=== PATIENT | male | born 1970 | race Caucasian/White ===

== ENCOUNTER 2019-03-16 16:27 | Inpatient (IN) | payer OTHER ==
[2019-03-17 02:20] VITALS: BMI 22.5
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
[2019-03-17] MEDS ORDERED: MAGNESIUM HYDROX 2400MG/30ML ORAL SUSPENSION 30 ML CUP PO PRN (02:52)
[2019-03-17] MEDS ORDERED: ACETAMINOPHEN 325 MG TABLET (FP) PO PRN ×2 (02:52)
[2019-03-17] MEDS ORDERED: MELATONIN 5 MG TABLETS PO PRN (02:52)
[2019-03-17] MEDS ORDERED: BISMUTH SUBSALICYLATE 524 MG/30 ML UD PO PRN (02:52)
[2019-03-17] MEDS ORDERED: MAG HYDROX/AL HYDROX/SIMETH 30 ML UNIT-DOSE CUP PO PRN (02:52)
[2019-03-17] MEDS ORDERED: IBUPROFEN 400 MG TABLET (FP) PO PRN (02:52)
[2019-03-17] MEDS ORDERED: hydrOXYzine PAMOATE 25 MG CAPSULE (FP) PO PRN (02:52)
[2019-03-17] MEDS ORDERED: METHOCARBAMOL 500 MG TABLET PO PRN (02:52)
[2019-03-17] MEDS ORDERED: chlordiazePOXIDE HCL 25 MG CAPSULE PO PRN (02:52)
[2019-03-17] MEDS ORDERED: MENTHOL/PHENOL 1 EACH UD MM PRN (02:52)
[2019-03-17] MEDS ORDERED: MAGNESIUM CITRATE 300 ML BOTTLE PO PRN (02:52)
[2019-03-17] MEDS ORDERED: NICOTINE POLACRILEX 2 MG GUM BUC PRN (02:52)
[2019-03-17] MEDS: chlordiazePOXIDE HCL 25 MG CAPSULE PO SCH ×2 (07:17→11:27)
[2019-03-17] MEDS ORDERED: METHADONE HCL 10 MG TABLET PO SCH (08:00)
[2019-03-17] MEDS ORDERED: METHADONE 120 MG, METHADONE 30 MG PO SCH ×2 (08:15)
[2019-03-17] MEDS ORDERED: METHADONE HCL 10 MG TABLET ONE (09:33)
[2019-03-17] MEDS ORDERED: METHADONE HCL 40 MG DISPERSABLE TABLET ONE (09:34)
[2019-03-17] MEDS ORDERED: METHADONE HCL 10 MG TABLET PO ONE (09:40)
[2019-03-17 09:42] VITALS: BP 100/62; PULSE 54; TEMP 98.4
[2019-03-17] MEDS ORDERED: METHADONE 120 MG, METHADONE 30 MG PO ONE (09:50)
[2019-03-17] MEDS ORDERED: NICOTINE 21 MG/24 HOURS TOPICAL PATCH TD SCH (10:00)
[2019-03-17] MEDS ORDERED: PRENATAL VITAMINS W/ FOLIC ACID TABLET (FP) PO SCH (10:00)
--- NOTE | 2019-03-17 14:19 | PN ---
[facility] Progress Note Note: pt displayed threatening behavior towards staff, extensive de-escalation and therapeutic intervention attempted, however, pt remained threatening and menacing to fellow patients and staff. pt administratively discharge to avoid further incident. pt endorsed understanding of risk of relapsed withdrawals symptoms including seizures, OD, DT's, yet demonstrated inability to adhere to institutional regulations. pt was escorted off the unity by security without incident or protest.
--- NOTE | 2019-03-17 14:21 | DS ---
[facility] Detox Discharge Summary Admission Date: 03/17/19 - History Present History: Alcohol Dependence - Physical Exam Results Vital Signs: Vital Signs Temperature 98.4 F 03/17/19 09:42 Pulse Rate 54 L 03/17/19 09:42 Respiratory Rate 16 03/17/19 09:42 Blood Pressure 100/62 03/17/19 09:42 O2 Sat by Pulse Oximetry (%) - Treatment Patient has Accepted a Rehab Referral to: pt refused aftercare. - Medication Discharge Medications: Ambulatory Orders Methadone (Detox) [Dolophine -] 150 mg PO DAILY 11/05/13 Olanzapine 20 mg PO HS 11/05/13 Omeprazole [Prilosec (RX)] 20 mg PO DAILY 11/05/13 - Diagnosis (1) Alcohol dependence with uncomplicated withdrawal Status: Chronic (2) Sedative dependence Status: Chronic (3) Anxiety Status: Chronic (4) Asthma Status: Chronic Qualifiers: Asthma severity: mild Asthma persistence: intermittent (5) GERD (gastroesophageal reflux disease) Status: Chronic Qualifiers: Esophagitis presence: without esophagitis Qualified Code(s): K21.9 - Gastro -esophageal reflux disease without esophagitis (6) Hepatitis C, chronic Status: Chronic (7) Methadone maintenance therapy patient Status: Chronic - AMA Did Patient Leave Against Medical Advice: No (involuntary discharge)
[2019-03-17] MEDS ORDERED: THIAMINE HCL 100 MG TABLET (FP) PO SCH (22:00)
[2019-03-18] MEDS ORDERED: chlordiazePOXIDE HCL 25 MG CAPSULE PO SCH (05:00)
[2019-03-18] MEDS ORDERED: METHADONE 120 MG, METHADONE 30 MG PO SCH (06:00)
[2019-03-18] MEDS ORDERED: METHADONE HCL 40 MG DISPERSABLE TABLET PO SCH (06:00)
--- NOTE | 2019-03-18 10:34 | EKG ---
Test Reason : Blood Pressure : / mmHG Vent. Rate : 054 BPM Atrial Rate : 054 BPM P-R Int : 114 ms QRS Dur : 106 ms QT Int : 460 ms P-R-T Axes : 036 088 058 degrees QTc Int : 436 ms SINUS BRADYCARDIA OTHERWISE NORMAL ECG NO PREVIOUS ECGS AVAILABLE Confirmed by OTIS SILVEIRA, JAVI ([id number]) on 03/18/2019 10:33:56 AM Referred By: ANSELMO Confirmed By:JAVI BERG MD
[2019-03-19] MEDS ORDERED: chlordiazePOXIDE HCL 10 MG CAPSULE PO PRN
[2019-03-19] MEDS ORDERED: chlordiazePOXIDE HCL 10 MG CAPSULE PO SCH (05:00)
[2019-03-20] MEDS ORDERED: chlordiazePOXIDE HCL 10 MG CAPSULE PO SCH (05:00)
[2019-03-21] MEDS ORDERED: chlordiazePOXIDE HCL 10 MG CAPSULE PO ONE (05:00)
== END 2019-03-17 10:59 | disposition home or self-care (01) | DRG 773 ==
LOC: YASAS 16:27 → Y6N 03-17 02:48
PROVIDERS: ADMIT Surgery; ATTEND Surgery
PROC: HZ2ZZZZ Detoxification Services for Substance Abuse Treatment (ICD-10-PCS; principal; 2019-03-17)
DX: F11.23 Opioid dependence with withdrawal (principal); F10.230 Alcohol dependence with withdrawal, uncomplicated; F13.230 Sedative, hypnotic or anxiolytic dependence with withdrawal, uncomplicated; F17.210 Nicotine dependence, cigarettes, uncomplicated; F41.9 Anxiety disorder, unspecified; F91.8 Other conduct disorders; J45.20 Mild intermittent asthma, uncomplicated; K21.9 Gastro-esophageal reflux disease without esophagitis; B18.2 Chronic viral hepatitis C; Z59.0 Homelessness
CPT/HCPCS: 93005; 93010

== ENCOUNTER 2020-11-28 13:41 | Inpatient (IN) | payer OTHER ==
[2020-11-28 14:38] VITALS: BMI 20.7
[2020-11-28] MEDS ORDERED: MAGNESIUM CITRATE 300 ML BOTTLE PO PRN (20:42)
[2020-11-28] MEDS ORDERED: MAGNESIUM HYDROX 2400MG/30ML ORAL SUSPENSION 30 ML CUP PO PRN (20:42)
[2020-11-28] MEDS ORDERED: guaiFENesin 200 MG/10 ML 10 ML UNIT-DOSE CUPS PO PRN (20:42)
[2020-11-28] MEDS ORDERED: P-EPHED 60MG/TRIPROLIDI 2.5MG TABLET PO PRN (20:42)
[2020-11-28] MEDS ORDERED: IBUPROFEN 400 MG TABLET (FP) PO PRN (20:42)
[2020-11-28] MEDS ORDERED: ACETAMINOPHEN 325 MG TABLET (FP) PO PRN (20:42)
[2020-11-28] MEDS ORDERED: LOPERAMIDE HCL 2 MG CAPSULE PO PRN (20:42)
[2020-11-28] MEDS: THIAMINE HCL 100 MG TABLET (FP) PO SCH (21:50)
[2020-11-28] MEDS: MELATONIN 5 MG TABLETS PO SCH (21:50)
[2020-11-28] MEDS: hydrOXYzine PAMOATE 25 MG CAPSULE (FP) PO SCH (21:51)
[2020-11-28] MEDS ORDERED: TUBERCULIN PPD 5 TU/0.1ML VIAL ID ONE (22:01)
[2020-11-29] MEDS: hydrOXYzine PAMOATE 25 MG CAPSULE (FP) PO SCH (07:06)
[2020-11-29] MEDS: METHADONE HCL 40 MG DISPERSABLE TABLET PO SCH (08:37)
[2020-11-29] MEDS: PANTOPRAZOLE 20 MG TABLET PO SCH (09:32)
[2020-11-29] MEDS: PRENATAL VITAMINS W/ FOLIC ACID TABLET (FP) PO SCH (09:32)
[2020-11-29] MEDS: NICOTINE 7 MG/24 HOURS TOPICAL PATCH TD SCH (09:32)
[2020-11-29 10:22] LABS: HEMOGLOBIN 13.1 GM/dL (11.7-16.9); MCH 30.7 pg (25.7-33.7); MCHC 34.4 g/dl (32.0-35.9); MEAN CELL VOLUME 89.3 fl (80-96); MEAN PLT VOLUME 8.6 fl (7.5-11.1); PLATELET COUNT 227 K/MM3 (134-434); RBC 4.25 M/mm3 (4.00-5.60); RDW 13.8 % (11.9-15.9); WHITE BLOOD COUNT 7.5 K/mm3 (4.0-10.0)
[2020-11-29 10:36] LABS: ALBUMIN 3.1 g/dl (3.4-5.0); BLOOD UREA NITROGEN 12.9 mg/dL (7-18); CALCIUM 9.1 mg/dL (8.5-10.1)
[2020-11-29 10:38] LABS: BILIRUBIN,TOTAL 0.3 mg/dL (0.2-1); TOT PROT 6.2 g/dl (6.4-8.2)
[2020-11-29 10:39] LABS: POTASSIUM 4.5 mmol/L (3.5-5.1)
[2020-11-29] MEDS ORDERED: diphenhydrAMINE HCL 25 MG CAPSULE (FP) PO ONE (13:01)
[2020-11-29] MEDS: SULFAMETHOXAZOLE/TRIMETHOPRIM 800MG/160MG D.S. TABLET PO SCH ×2 (13:13→21:21)
[2020-11-29 17:25] LABS: PH,URINE 7.5 (5.0-8.0); URINE APPEARANCE CLOUDY; URINE BILIRUBIN NEGATIVE (NEGATIVE); URINE COLOR DK YELLOW; URINE GLUCOSE (UA) NEGATIVE (NEGATIVE); URINE KETONE NEGATIVE (NEGATIVE); URINE LEUK ESTERASE NEGATIVE (NEGATIVE); URINE NITRITE NEGATIVE (NEGATIVE); URINE PROTEIN NEGATIVE (NEGATIVE)
[2020-11-29] MEDS: MELATONIN 5 MG TABLETS PO SCH (21:18)
[2020-11-29] MEDS: THIAMINE HCL 100 MG TABLET (FP) PO SCH (21:18)
[2020-11-29] MEDS: ARIPiprazole 5 MG TABLET PO SCH (21:21)
[2020-11-30] MEDS: METHADONE HCL 40 MG DISPERSABLE TABLET PO SCH (06:42)
[2020-11-30] MEDS: NICOTINE 7 MG/24 HOURS TOPICAL PATCH TD SCH (09:14)
[2020-11-30] MEDS: PRENATAL VITAMINS W/ FOLIC ACID TABLET (FP) PO SCH (09:15)
[2020-11-30] MEDS: PANTOPRAZOLE 20 MG TABLET PO SCH (09:15)
[2020-11-30] MEDS: SULFAMETHOXAZOLE/TRIMETHOPRIM 800MG/160MG D.S. TABLET PO SCH ×2 (09:15→21:14)
[2020-11-30] MEDS: MELATONIN 5 MG TABLETS PO SCH (21:14)
[2020-11-30] MEDS: ARIPiprazole 5 MG TABLET PO SCH (21:14)
[2020-11-30] MEDS: THIAMINE HCL 100 MG TABLET (FP) PO SCH (21:14)
[2020-12-01] MEDS: METHADONE HCL 40 MG DISPERSABLE TABLET PO SCH (06:35)
[2020-12-01] MEDS: PANTOPRAZOLE 20 MG TABLET PO SCH (09:33)
[2020-12-01] MEDS: SULFAMETHOXAZOLE/TRIMETHOPRIM 800MG/160MG D.S. TABLET PO SCH ×2 (09:33→21:28)
[2020-12-01] MEDS: NICOTINE 7 MG/24 HOURS TOPICAL PATCH TD SCH (09:33)
[2020-12-01] MEDS: PRENATAL VITAMINS W/ FOLIC ACID TABLET (FP) PO SCH (09:33)
[2020-12-01] MEDS: MAG HYDROX/AL HYDROX/SIMETH 30 ML UNIT-DOSE CUP PO PRN (17:07)
[2020-12-01] MEDS: MELATONIN 5 MG TABLETS PO SCH (21:28)
[2020-12-01] MEDS: ARIPiprazole 5 MG TABLET PO SCH (21:28)
[2020-12-01] MEDS: THIAMINE HCL 100 MG TABLET (FP) PO SCH (21:28)
[2020-12-02 05:08] LABS: SARS-CoV-2 NAA Not Detected (Not Detected)
[2020-12-02] MEDS: METHADONE HCL 40 MG DISPERSABLE TABLET PO SCH (06:39)
[2020-12-02] MEDS: PRENATAL VITAMINS W/ FOLIC ACID TABLET (FP) PO SCH (09:45)
[2020-12-02] MEDS: PANTOPRAZOLE 20 MG TABLET PO SCH (09:45)
[2020-12-02] MEDS: SULFAMETHOXAZOLE/TRIMETHOPRIM 800MG/160MG D.S. TABLET PO SCH ×2 (09:45→21:17)
[2020-12-02] MEDS: NICOTINE 7 MG/24 HOURS TOPICAL PATCH TD SCH (09:47)
[2020-12-02] MEDS ORDERED: ONDANSETRON *ODT* 4 MG TABLET SL PRN (12:39)
[2020-12-02] MEDS: MELATONIN 5 MG TABLETS PO SCH (21:17)
[2020-12-02] MEDS: ARIPiprazole 5 MG TABLET PO SCH (21:17)
[2020-12-02] MEDS: THIAMINE HCL 100 MG TABLET (FP) PO SCH (21:17)
[2020-12-03] MEDS: METHADONE HCL 40 MG DISPERSABLE TABLET PO SCH (06:33)
[2020-12-03] MEDS: PANTOPRAZOLE 20 MG TABLET PO SCH (09:29)
[2020-12-03] MEDS: PRENATAL VITAMINS W/ FOLIC ACID TABLET (FP) PO SCH (09:29)
[2020-12-03] MEDS: SULFAMETHOXAZOLE/TRIMETHOPRIM 800MG/160MG D.S. TABLET PO SCH ×2 (09:29→21:06)
[2020-12-03] MEDS: NICOTINE 7 MG/24 HOURS TOPICAL PATCH TD SCH (09:30)
[2020-12-03] MEDS: MELATONIN 5 MG TABLETS PO SCH (21:06)
[2020-12-03] MEDS: THIAMINE HCL 100 MG TABLET (FP) PO SCH (21:06)
[2020-12-03] MEDS: ARIPiprazole 5 MG TABLET PO SCH (21:06)
[2020-12-04] MEDS: METHADONE HCL 40 MG DISPERSABLE TABLET PO SCH (06:52)
[2020-12-04] MEDS: NICOTINE 7 MG/24 HOURS TOPICAL PATCH TD SCH (09:23)
[2020-12-04] MEDS: SULFAMETHOXAZOLE/TRIMETHOPRIM 800MG/160MG D.S. TABLET PO SCH ×2 (09:23→21:17)
[2020-12-04] MEDS: PANTOPRAZOLE 20 MG TABLET PO SCH (09:24)
[2020-12-04] MEDS: PRENATAL VITAMINS W/ FOLIC ACID TABLET (FP) PO SCH (09:24)
[2020-12-04] MEDS: MAG HYDROX/AL HYDROX/SIMETH 30 ML UNIT-DOSE CUP PO PRN (09:25)
[2020-12-04] MEDS: ARIPiprazole 5 MG TABLET PO SCH (21:17)
[2020-12-04] MEDS: MELATONIN 5 MG TABLETS PO SCH (21:17)
[2020-12-04] MEDS: THIAMINE HCL 100 MG TABLET (FP) PO SCH (21:17)
[2020-12-05] MEDS: METHADONE HCL 40 MG DISPERSABLE TABLET PO SCH (06:59)
[2020-12-05 07:04] VITALS: BP 129/79; PULSE 59; TEMP 97.3
[2020-12-05] MEDS: NICOTINE 7 MG/24 HOURS TOPICAL PATCH TD SCH (09:37)
[2020-12-05] MEDS: SULFAMETHOXAZOLE/TRIMETHOPRIM 800MG/160MG D.S. TABLET PO SCH ×2 (09:37→21:08)
[2020-12-05] MEDS: PRENATAL VITAMINS W/ FOLIC ACID TABLET (FP) PO SCH (09:38)
[2020-12-05] MEDS: PANTOPRAZOLE 20 MG TABLET PO SCH (09:38)
[2020-12-05] MEDS: NICOTINE POLACRILEX 2 MG GUM BC PRN (14:56)
[2020-12-05] MEDS: THIAMINE HCL 100 MG TABLET (FP) PO SCH (21:06)
[2020-12-05] MEDS: MELATONIN 5 MG TABLETS PO SCH (21:06)
[2020-12-05] MEDS: ARIPiprazole 5 MG TABLET PO SCH (21:09)
[2020-12-06] MEDS ORDERED: METHADONE HCL 40 MG DISPERSABLE TABLET PO SCH (06:00)
[2020-12-06] MEDS ORDERED: NICOTINE 14 MG/24 HOURS TOPICAL PATCH TD SCH (10:00)
[2020-12-06] MEDS: PRENATAL VITAMINS W/ FOLIC ACID TABLET (FP) PO SCH (10:03)
[2020-12-06] MEDS: PANTOPRAZOLE 20 MG TABLET PO SCH (10:04)
[2020-12-06] MEDS: NICOTINE POLACRILEX 2 MG GUM BC PRN (10:04)
== END 2020-12-06 14:52 | disposition home or self-care (01) | DRG 772 ==
LOC: YASAS 13:41 → Y3E 19:59
PROVIDERS: ADMIT Allergy & Immunology; ATTEND Allergy & Immunology
PROC: HZ42ZZZ Group Counseling for Substance Abuse Treatment, Cognitive-Behavioral (ICD-10-PCS; principal; 2020-11-28)
DX: F11.20 Opioid dependence, uncomplicated (principal); F10.20 Alcohol dependence, uncomplicated; F13.20 Sedative, hypnotic or anxiolytic dependence, uncomplicated; F14.20 Cocaine dependence, uncomplicated; F17.210 Nicotine dependence, cigarettes, uncomplicated; F31.9 Bipolar disorder, unspecified; F41.8 Other specified anxiety disorders; K21.9 Gastro-esophageal reflux disease without esophagitis; B18.2 Chronic viral hepatitis C; Z59.0 Homelessness; Z56.0 Unemployment, unspecified
CPT/HCPCS: 36415; 80053; 81003; 85027; 86780; C9803; Q0162; U0003; U0005

== ENCOUNTER 2021-01-16 12:02 | Inpatient (IN) | payer OTHER ==
[2021-01-16 12:39] VITALS: BMI 20.7
[2021-01-16] MEDS ORDERED: MAGNESIUM CITRATE 300 ML BOTTLE PO PRN (13:29)
[2021-01-16] MEDS ORDERED: MAG HYDROX/AL HYDROX/SIMETH 30 ML UNIT-DOSE CUP PO PRN (13:29)
[2021-01-16] MEDS ORDERED: METHOCARBAMOL 500 MG TABLET PO PRN (13:29)
[2021-01-16] MEDS ORDERED: MENTHOL/PHENOL 1 EACH UD MM PRN (13:29)
[2021-01-16] MEDS ORDERED: MAGNESIUM HYDROX 2400MG/30ML ORAL SUSPENSION 30 ML CUP PO PRN (13:29)
[2021-01-16] MEDS ORDERED: NICOTINE POLACRILEX 2 MG GUM BUC PRN (13:29)
[2021-01-16] MEDS ORDERED: IBUPROFEN 400 MG TABLET (FP) PO PRN (13:29)
[2021-01-16] MEDS ORDERED: BISMUTH SUBSALICYLATE 524 MG/30 ML UD PO PRN (13:29)
[2021-01-16] MEDS ORDERED: ACETAMINOPHEN 325 MG TABLET (FP) PO PRN ×2 (13:29)
[2021-01-16] MEDS ORDERED: diazePAM 5 MG TABLET PO PRN (13:29)
[2021-01-16] MEDS ORDERED: ONDANSETRON *ODT* 4 MG TABLET SL PRN (13:29)
[2021-01-16] MEDS: PRENATAL VITAMINS W/ FOLIC ACID TABLET (FP) PO SCH (14:56)
[2021-01-16] MEDS: NICOTINE 21 MG/24 HOURS TOPICAL PATCH TD SCH (14:56)
[2021-01-16] MEDS: hydrOXYzine PAMOATE 25 MG CAPSULE (FP) PO SCH ×3 (14:56→23:40)
[2021-01-16 17:01] LABS: HEMATOCRIT 38.2 % (35.4-49); HEMOGLOBIN 12.7 GM/dL (11.7-16.9); MCH 30.5 pg (25.7-33.7); MCHC 33.3 g/dl (32.0-35.9); MEAN CELL VOLUME 91.4 fl (80-96); MEAN PLT VOLUME 8.8 fl (7.5-11.1); PLATELET COUNT 272 K/MM3 (134-434); RBC 4.17 M/mm3 (4.00-5.60); RDW 14.6 % (11.9-15.9); WHITE BLOOD COUNT 7.7 K/mm3 (4.0-10.0)
[2021-01-16 17:08] LABS: ALBUMIN 3.4 g/dl (3.4-5.0); BLOOD UREA NITROGEN 8.5 mg/dL (7-18)
[2021-01-16 17:11] LABS: CREATININE 0.8 mg/dL (0.55-1.3)
[2021-01-16 17:12] LABS: BILIRUBIN,TOTAL 0.5 mg/dL (0.2-1); TOT PROT 6.6 g/dl (6.4-8.2)
[2021-01-16] MEDS: diazePAM 5 MG TABLET PO SCH ×2 (17:52→23:41)
[2021-01-16] MEDS: MELATONIN 5 MG TABLETS PO SCH (23:40)
[2021-01-16] MEDS: THIAMINE HCL 100 MG TABLET (FP) PO SCH (23:41)
[2021-01-17] MEDS: diazePAM 5 MG TABLET PO SCH ×4 (05:37→22:16)
[2021-01-17] MEDS: hydrOXYzine PAMOATE 25 MG CAPSULE (FP) PO SCH ×5 (05:37→22:17)
[2021-01-17] MEDS: METHADONE HCL 40 MG DISPERSABLE TABLET PO SCH (05:38)
[2021-01-17] MEDS: PRENATAL VITAMINS W/ FOLIC ACID TABLET (FP) PO SCH (10:50)
[2021-01-17] MEDS: NICOTINE 21 MG/24 HOURS TOPICAL PATCH TD SCH (10:50)
[2021-01-17] MEDS: MELATONIN 5 MG TABLETS PO SCH (22:16)
[2021-01-17] MEDS: THIAMINE HCL 100 MG TABLET (FP) PO SCH (22:16)
[2021-01-18] MEDS: hydrOXYzine PAMOATE 25 MG CAPSULE (FP) PO SCH ×2 (05:26→10:39)
[2021-01-18] MEDS: METHADONE HCL 40 MG DISPERSABLE TABLET PO SCH (05:26)
[2021-01-18] MEDS ORDERED: diazePAM 5 MG TABLET PO SCH (06:00)
[2021-01-18 08:56] VITALS: BP 97/55; PULSE 52; TEMP 97.3
[2021-01-18] MEDS: PRENATAL VITAMINS W/ FOLIC ACID TABLET (FP) PO SCH (10:39)
[2021-01-18] MEDS: NICOTINE 21 MG/24 HOURS TOPICAL PATCH TD SCH (10:40)
[2021-01-18] MEDS ORDERED: LOPERAMIDE HCL 2 MG CAPSULE PO PRN (10:46)
[2021-01-18] MEDS ORDERED: NALOXONE (NARCAN) HCL 4 MG/0.1 ML SPRAY NS ONE (12:45)
[2021-01-19] MEDS ORDERED: diazePAM 5 MG TABLET PO SCH (06:00)
[2021-01-20] MEDS ORDERED: diazePAM 5 MG TABLET PO ONE (06:00)
== END 2021-01-18 12:21 | disposition left against medical advice (07) | DRG 770 ==
LOC: YASAS 12:02 → Y3N 14:00
PROVIDERS: ADMIT Allergy & Immunology; ATTEND Allergy & Immunology
PROC: HZ2ZZZZ Detoxification Services for Substance Abuse Treatment (ICD-10-PCS; principal; 2021-01-16)
DX: F10.230 Alcohol dependence with withdrawal, uncomplicated (principal); F13.20 Sedative, hypnotic or anxiolytic dependence, uncomplicated; F11.20 Opioid dependence, uncomplicated; F14.20 Cocaine dependence, uncomplicated; F15.20 Other stimulant dependence, uncomplicated; F17.210 Nicotine dependence, cigarettes, uncomplicated; F31.9 Bipolar disorder, unspecified; F90.9 Attention-deficit hyperactivity disorder, unspecified type; J45.20 Mild intermittent asthma, uncomplicated; B18.2 Chronic viral hepatitis C; Z59.0 Homelessness
CPT/HCPCS: 36415; 80053; 85027; 86780; C9803; U0003; U0005

== ENCOUNTER 2021-10-02 14:18 | Inpatient (IN) | payer OTHER ==
[2021-10-02] MEDS ORDERED: BUPRENORPHINE HCL 150 MCG, BUPRENORPHINE HCL 75 MCG BC ONE (15:55)
[2021-10-02] MEDS ORDERED: NICOTINE 10 MG CARTRIDGE (INHALER) IH PRN (15:55)
[2021-10-02] MEDS ORDERED: MENTHOL/PHENOL 1 EACH UD MM PRN (15:55)
[2021-10-02] MEDS ORDERED: BISMUTH SUBSALICYLATE 524 MG/30 ML PO PRN (15:55)
[2021-10-02] MEDS ORDERED: MAGNESIUM HYDROX 2400MG/30ML ORAL SUSPENSION 30 ML CUP PO PRN (15:55)
[2021-10-02] MEDS ORDERED: MAGNESIUM CITRATE 300 ML BOTTLE PO PRN (15:55)
[2021-10-02] MEDS ORDERED: ACETAMINOPHEN 325 MG TABLET (FP) PO PRN (15:55)
[2021-10-02] MEDS ORDERED: ONDANSETRON *ODT* 4 MG TABLET SL PRN (15:55)
[2021-10-02] MEDS ORDERED: MAG HYDROX/AL HYDROX/SIMETH 30 ML UNIT-DOSE CUP PO PRN (15:55)
[2021-10-02] MEDS ORDERED: diazePAM 5 MG TABLET PO PRN (15:58)
[2021-10-02] MEDS ORDERED: NALOXONE (NARCAN) HCL 4 MG/0.1 ML SPRAY NS SCH (16:00)
[2021-10-02] MEDS ORDERED: ARTIFICIAL TEARS (POLYVINYL ALCOHOL) OPTH DROPS OU PRN (16:02)
[2021-10-02 19:35] VITALS: BMI 20.2
[2021-10-02] MEDS: hydrOXYzine PAMOATE 25 MG CAPSULE (FP) PO SCH ×2 (20:33→22:30)
[2021-10-02] MEDS: LORazepam 1 MG TABLET PO PRN (21:16)
[2021-10-02] MEDS: cloNIDine HCL 0.1 MG TABLET PO PRN (21:18)
[2021-10-02] MEDS: METHOCARBAMOL 500 MG TABLET PO PRN (21:18)
[2021-10-02] MEDS: LORazepam 2 MG TABLET PO SCH ×2 (22:00→22:30)
[2021-10-02] MEDS: MELATONIN 5 MG TABLETS PO SCH (22:00)
[2021-10-03] MEDS: THIAMINE HCL 100 MG TABLET (FP) PO SCH ×2 (01:17→22:25)
[2021-10-03] MEDS ORDERED: BUPRENORPHINE HCL 150 MCG FILM BC ONE ×2 (04:11→17:24)
[2021-10-03] MEDS ORDERED: BUPRENORPHINE HCL 75 MCG FILM BC ONE ×2 (04:11→17:23)
[2021-10-03] MEDS: BUPRENORPHINE HCL 150 MCG, BUPRENORPHINE HCL 75 MCG BC SCH ×2 (05:28→17:34)
[2021-10-03] MEDS: LORazepam 2 MG TABLET PO SCH ×4 (05:28→22:25)
[2021-10-03] MEDS: ACETAMINOPHEN 325 MG TABLET (FP) PO PRN ×2 (05:29→10:59)
[2021-10-03] MEDS: hydrOXYzine PAMOATE 25 MG CAPSULE (FP) PO SCH ×5 (05:33→22:25)
[2021-10-03] MEDS: PRENATAL VITAMINS W/ FOLIC ACID TABLET (FP) PO SCH (10:57)
[2021-10-03 12:13] LABS: HEMATOCRIT 41.2 % (35.4-49); HEMOGLOBIN 13.5 GM/dL (11.7-16.9); MCH 28.6 pg (25.7-33.7); MCHC 32.7 g/dl (32.0-35.9); MEAN CELL VOLUME 87.3 fl (80-96); MEAN PLT VOLUME 8.2 fl (7.5-11.1); PLATELET COUNT 315 10^3/uL (134-434); RBC 4.72 M/mm3 (4.00-5.60); RDW 14.3 % (11.9-15.9); WHITE BLOOD COUNT 9.5 K/mm3 (4.0-10.0)
[2021-10-03] MEDS: CIPROFLOXACIN HCL 0.3% OPHTH 2.5ML BOTTLE OD SCH ×2 (12:28→23:50)
[2021-10-03 12:30] LABS: ALBUMIN 3.2 g/dl (3.4-5.0); CALCIUM 9.1 mg/dL (8.5-10.1)
[2021-10-03 12:31] LABS: BLOOD UREA NITROGEN 11.4 mg/dL (7-18)
[2021-10-03 12:33] LABS: CREATININE 0.6 mg/dL (0.55-1.3)
[2021-10-03 12:34] LABS: BILIRUBIN,TOTAL 0.4 mg/dL (0.2-1); TOT PROT 6.2 g/dl (6.4-8.2)
[2021-10-03] MEDS: LORazepam 1 MG TABLET PO PRN (15:36)
[2021-10-03] MEDS: IBUPROFEN 400 MG TABLET (FP) PO PRN (15:36)
[2021-10-03] MEDS: MELATONIN 5 MG TABLETS PO SCH (22:26)
[2021-10-04] MEDS: ACETAMINOPHEN 325 MG TABLET (FP) PO PRN ×2 (02:02→08:45)
[2021-10-04] MEDS: LORazepam 1 MG TABLET PO SCH ×4 (05:57→22:50)
[2021-10-04] MEDS: BUPRENORPHINE HCL 450 MCG FILM BC SCH ×2 (05:58→18:03)
[2021-10-04] MEDS: hydrOXYzine PAMOATE 25 MG CAPSULE (FP) PO SCH ×5 (05:59→22:49)
[2021-10-04] MEDS: METHOCARBAMOL 500 MG TABLET PO PRN (08:44)
[2021-10-04] MEDS: cloNIDine HCL 0.1 MG TABLET PO PRN (08:44)
[2021-10-04] MEDS: PRENATAL VITAMINS W/ FOLIC ACID TABLET (FP) PO SCH (10:36)
[2021-10-04] MEDS: CIPROFLOXACIN HCL 0.3% OPHTH 2.5ML BOTTLE OD SCH ×4 (11:11→23:07)
[2021-10-04] MEDS: IBUPROFEN 400 MG TABLET (FP) PO PRN (12:14)
[2021-10-04] MEDS: MELATONIN 5 MG TABLETS PO SCH (22:49)
[2021-10-04] MEDS: THIAMINE HCL 100 MG TABLET (FP) PO SCH (22:49)
[2021-10-05] MEDS ORDERED: LORazepam 0.5 MG TABLET PO PRN
[2021-10-05] MEDS ORDERED: BUPRENORPHINE/NALOXONE 4 MG/1 MG FILM PACKET SL SCH (06:00)
[2021-10-05] MEDS: CIPROFLOXACIN HCL 0.3% OPHTH 2.5ML BOTTLE OD SCH ×3 (06:17→14:53)
[2021-10-05] MEDS: hydrOXYzine PAMOATE 25 MG CAPSULE (FP) PO SCH ×3 (06:17→14:49)
[2021-10-05] MEDS: LORazepam 0.5 MG TABLET PO SCH ×2 (06:17→10:26)
[2021-10-05] MEDS: PRENATAL VITAMINS W/ FOLIC ACID TABLET (FP) PO SCH (10:25)
[2021-10-05] MEDS: METHOCARBAMOL 500 MG TABLET PO PRN (10:25)
[2021-10-05] MEDS: IBUPROFEN 400 MG TABLET (FP) PO PRN (10:27)
[2021-10-05 13:27] VITALS: BP 115/66; PULSE 101; TEMP 98.1
[2021-10-05] MEDS ORDERED: NICOTINE 10 MG CARTRIDGE (INHALER) IH PRN (14:59)
[2021-10-05] MEDS ORDERED: NICOTINE POLACRILEX 2 MG GUM BUC PRN (15:23)
[2021-10-05] MEDS ORDERED: NICOTINE 21 MG/24 HOURS TOPICAL PATCH TD SCH (15:30)
[2021-10-06] MEDS ORDERED: LORazepam 0.5 MG TABLET PO ONE (05:00)
[2021-10-06] MEDS ORDERED: BUPRENORPHINE/NALOXONE 8 MG/2 MG FILM PACKET SL ONE (06:00)
== END 2021-10-05 16:14 | disposition left against medical advice (07) | DRG 770 ==
LOC: YASAS 14:18 → Y6N 20:02
PROVIDERS: ADMIT Allergy & Immunology; ATTEND Allergy & Immunology
PROC: HZ2ZZZZ Detoxification Services for Substance Abuse Treatment (ICD-10-PCS; principal; 2021-10-02)
DX: F11.23 Opioid dependence with withdrawal (principal); F10.230 Alcohol dependence with withdrawal, uncomplicated; F14.20 Cocaine dependence, uncomplicated; F17.210 Nicotine dependence, cigarettes, uncomplicated; F31.9 Bipolar disorder, unspecified; F41.9 Anxiety disorder, unspecified; B18.2 Chronic viral hepatitis C; H11.31 Conjunctival hemorrhage, right eye; J45.20 Mild intermittent asthma, uncomplicated; K21.9 Gastro-esophageal reflux disease without esophagitis; Z56.0 Unemployment, unspecified; Z59.00 Homelessness unspecified
CPT/HCPCS: 36415; 80053; 85027; 86780; C9803; J0735; U0003; U0005

== ENCOUNTER 2021-10-04 12:59 | Emergency (ER) | payer OTHER ==
[2021-10-04 13:30] VITALS: BP 112/66; PULSE 94; TEMP 98.6; BMI 19.8
[2021-10-04 16:29] LABS: BASO % 0.2 % (0-2.0); EOS % 1.6 % (0-4.5); HEMATOCRIT 42.1 % (35.4-49); LYMPH % 38.8 % (8-40); MCH 29.3 pg (25.7-33.7); MCHC 33.2 g/dl (32.0-35.9); MEAN CELL VOLUME 88.2 fl (80-96); MEAN PLT VOLUME 7.9 fl (7.5-11.1); MONO % 6.6 % (3.8-10.2); NEUT % 52.8 % (42.8-82.8); PLATELET COUNT 305 10^3/uL (134-434); RBC 4.77 M/mm3 (4.00-5.60); RDW 14.9 % (11.9-15.9); WHITE BLOOD COUNT 10.5 K/mm3 (4.0-10.0)
[2021-10-04 16:42] LABS: ALBUMIN 3.4 g/dl (3.4-5.0); CALCIUM 9.2 mg/dL (8.5-10.1)
[2021-10-04 16:43] LABS: BLOOD UREA NITROGEN 18.2 mg/dL (7-18)
[2021-10-04 16:46] LABS: CREATININE 0.8 mg/dL (0.55-1.3)
[2021-10-04 16:47] LABS: BILIRUBIN,TOTAL 0.3 mg/dL (0.2-1); TOT PROT 6.6 g/dl (6.4-8.2)
[2021-10-04 16:58] LABS: PROTHROMBIN TIME (PATIENT) 11.5 SEC (9.7-13.0)
== END 2021-10-04 17:18 | disposition home or self-care (01) ==
LOC: JERFT 12:59
DX: H11.31 Conjunctival hemorrhage, right eye (principal)
CPT/HCPCS: 36415; 80053; 85025; 85610; 99283-25